=== PATIENT | female | born 1975 | race Caucasian/White ===

== ENCOUNTER 2019-05-11 16:43 | Emergency (ER) | payer BC ==
[~2019-05-11] VITALS: Ht 165.1 cm; Wt 70.0 kg
[2019-05-11] MEDS ORDERED: MAGNESIUM/ALUMINUM HYDROXIDE/SIMETHICONE 30ML UDC PO ONE (18:00)
[2019-05-11] MEDS ORDERED: ONDANSETRON 4MG ODT PO PRN (18:00)
[2019-05-11] MEDS ORDERED: ACETAMINOPHEN 325MG TABLET PO ONE (18:00)
[2019-05-11] MEDS ORDERED: FAMOTIDINE 20MG TABLET PO ONE (18:00)
[2019-05-11 18:26] LABS: EOSINOPHILS % 2.8 % (0.0-5.0); HEMATOCRIT. 27.7 % (36.0-48.0); HEMOGLOBIN. 8.8 g/dL (12.0-16.0); LYMPHOCYTES % 40.1 % (20.0-50.0); MEAN CORPUSCULAR HEMOGLOBIN 25.1 pg (28.0-32.0); MEAN PLATELET VOLUME 7.6 fl (7.4-10.4); MONOCYTES % 7.4 % (2.0-8.0); NEUTROPHILS % 48.7 % (40.0-76.0); PLATELET 275 x1000/uL (130-400); RED BLOOD CELL COUNT 3.51 mill/uL (4.2-5.4)
[2019-05-11 18:31] LABS: CHLORIDE 110 mEq/L (98-107)
[2019-05-11 18:43] LABS: HCG SCREEN NEGATIVE
[2019-05-11 21:44] VITALS: BP 122/78
== END 2019-05-11 21:45 | disposition home or self-care (01) ==
LOC: ER 16:43
DX: R07.89 Other chest pain (principal); R10.13 Epigastric pain; R11.0 Nausea; J45.909 Unspecified asthma, uncomplicated; K21.9 Gastro-esophageal reflux disease without esophagitis; Z98.890 Other specified postprocedural states
CPT/HCPCS: 36415; 71045; 80053; 81025; 83690; 84484; 84703; 85025; 93005; 99284; Q0162